=== PATIENT | female | born 1975 | race Caucasian/White ===

== ENCOUNTER 2016-11-25 05:46 | Day surgery (SDC) | payer BC, OTHER ==
[2016-11-25] VITALS (7 sets, daily range): BP systolic 129–143; BP diastolic 66–80
[~2016-11-25] VITALS: Ht 172.7 cm; Wt 114.8 kg
[~2016-11-25 05:46] MED LIST: DRIS50002 PO; LEVO25TA5 PO; NEXI40CA PO; PAXI20TA3 PO; SPIR50TA2 PO
[2016-11-25] MEDS ORDERED: LR 1,000 ML IV SCH ×2 (06:00→12:30)
[2016-11-25 06:42] LABS: CONTROL LINE UCG INT CTR LINE PRESENT
[2016-11-25] MEDS ORDERED: ROCURONIUM BROMIDE 50 MG/5 ML VIAL As Ordered ONE ×2 (07:15→08:26)
[2016-11-25] MEDS ORDERED: PROPOFOL 200 MG/20 ML VIAL As Ordered ONE ×2 (07:15→09:11)
[2016-11-25] MEDS ORDERED: LIDOCAINE 2% INJ 100 MG/5 ML SDV (FOR ANES.) As Ordered ONE ×2 (07:15→09:03)
[2016-11-25] MEDS ORDERED: fentaNYL 250 MCG/5 ML INJECTION (J3010) As Ordered ONE (07:15)
[2016-11-25] MEDS ORDERED: MIDAZOLAM INJ 2 MG/2 ML VIAL (J2250) As Ordered ONE (07:15)
[2016-11-25] MEDS ORDERED: SEVOFLURANE INHAL SOLN 250 ML BTL As Ordered ONE (07:42)
[2016-11-25] MEDS ORDERED: ePHEDrine SULFATE 25 MG/5 ML(5MG/ML) SYRINGE As Ordered ONE ×2 (08:07→08:39)
[2016-11-25] MEDS: PANTOPRAZOLE 40MG TAB (PROTONIX) PO SCH (09:00)
[2016-11-25] MEDS ORDERED: LIDOCAINE 2% INJ 100 MG/5 ML SYRINGE As Ordered ONE (09:05)
[2016-11-25] MEDS ORDERED: dexameTHASONE 4 MG/ML 1ML VIAL (J1100) As Ordered ONE (09:30)
[2016-11-25] MEDS ORDERED: KETOROLAC 60 MG/2 ML VIAL (J1885) As Ordered ONE (09:30)
[2016-11-25] MEDS ORDERED: NEOSTIGMINE 1MG/ML 5 ML SYRINGE (J2710) As Ordered ONE (09:30)
[2016-11-25] MEDS ORDERED: GLYCOPYRROLATE INJ 0.2 MG/ML 2 ML VIAL As Ordered ONE (09:30)
[2016-11-25] MEDS ORDERED: HYDROmorphone HCL 2 MG/ML 1ML VIAL (J1170) As Ordered ONE (09:31)
[2016-11-25] MEDS ORDERED: ONDANSETRON 4MG/2ML VIAL (J2405) As Ordered ONE (09:33)
[2016-11-25] MEDS ORDERED: VASOPRESSIN INJ 20 UNITS/ML VIAL As Ordered ONE (10:45)
[2016-11-25] MEDS ORDERED: METHYLENE BLUE 1% 10 ML VIAL (Q9968) As Ordered ONE (10:45)
[2016-11-25] MEDS ORDERED: MORPHINE PCA 1MG/ML 100ML CADD As Ordered ONE (12:17)
[2016-11-25] MEDS ORDERED: METOCLOPRAMIDE INJ 10MG/2ML VIAL (J2765) IV PRN (12:30)
[2016-11-25] MEDS ORDERED: MORPHINE PCA 1MG/ML 100ML CADD IV PRN ×2 (12:30→20:45)
[2016-11-25] MEDS ORDERED: EPIDURAL/PCA KEYS XX PRN ×2 (12:30→20:45)
[2016-11-25] MEDS ORDERED: ONDANSETRON 4MG/2ML VIAL (J2405) IV PRN ×2 (12:30)
[2016-11-25] MEDS ORDERED: NALBUPHINE HCL 10 MG/ML AMP (J2300) IV PRN ×2 (12:30→20:45)
[2016-11-25] MEDS ORDERED: NALOXONE INJ 0.4 MG/1 ML VIAL (J2310) IV PRN ×2 (12:30→20:45)
[2016-11-25] MEDS ORDERED: fentaNYL 100 MCG/2 ML INJECTION (J3010) IV PRN (12:30)
[2016-11-25] MEDS ORDERED: PERCOCET 5MG/325MG TAB PO PRN (12:30)
[2016-11-25] MEDS ORDERED: diphenhydrAMINE INJ 50MG/ML VIAL (J1200) IV PRN ×2 (12:30→20:45)
[2016-11-25] MEDS: LR 1,000 ML IV SCH ×2 (14:34→21:13)
[2016-11-25] MEDS: LEVOTHYROXINE 0.025 MG TAB (25 MCG) PO SCH (14:58)
[2016-11-25] MEDS: PARoxetine 20 MG TAB PO SCH (14:58)
--- NOTE | 2016-11-25 20:49 | RO ---
DATE OF PROCEDURE: 11/25/2016 PREPROCEDURE DIAGNOSES: Dysmenorrhea, menorrhagia, fibroids, incontinence with urethral hypermobility. POSTOPERATIVE DIAGNOSES: Dysmenorrhea, menorrhagia, fibroids, incontinence with urethral hypermobility. OPERATIVE PROCEDURE: Robotic assisted hysterectomy, bilateral salpingectomy, midurethral sling using Desara, and cystourethroscopy. SURGEON: Roxanne Torres MD ASSISTANT CURATOR: Cathryn Zhao ANESTHESIA: General endotracheal. BRIEF DESCRIPTION OF PROCEDURE AND FINDINGS: Uriel was brought to the operating room where sufficient general endotracheal anesthesia was induced and she was prepped, draped and positioned in the usual sterile fashion with uterine manipulator placed and the Akers with the ability to backfill placed. Attention was turned to the abdomen where a transverse semilunar incision was made at the umbilicus. Sharp and blunt dissection was continued through the subcutaneous tissues to below the rectus fascia. She was transversely incised and secured with #0 Vicryl retention sutures. The peritoneum was then entered under direct visualization and the Emiliana trocar placed and this was used to place the robotic camera and the CO2 insufflation was undertaken and after adequate CO2 insufflation the peritoneal cavity was visualized. There were normal shiny peritoneal surfaces throughout and Trendelenburg was needed to visualize well. In looking over the pelvis, there was a large mass just to the left of where the bladder usually is. This was extraperitoneal and initially the uterine manipulator had gone into that fibroid mass rather than into the main uterus. We remanipulated the tissues and reset the manipulator so that it was in the main body of the uterus and we backfilled the bladder to confirm that this was not a bladder lesion and with the manipulator in the appropriate place and two more 8 mm left-sided ports were placed and one right-sided and we went ahead and positioned the patient and docked the robot. Following which, using the robot, I carefully cauterized and transected the mesentery to the tubes and the utero-ovarian suspensory ligaments. The patient desires to keep her ovaries so we carefully dissected those free from the uterus while leaving the fallopian tubes attached to the uterus. We then continued our dissection through the broad ligament and to the round ligament which was carefully cauterized and transected bilaterally. We then anteriorly in the broad ligament dissected across the anterior aspect of the uterus and over the top of this fibroid, carefully backfilling several times that we could confirm that we well away from the bladder in this dissection. We then moved posteriorly, brought the broad ligament down and we were able to visualize the cut posteriorly relatively easily. We were also to visualize the ureters with some effort and we freed up and took control of the blood supply on the left side first because this fibroid was more off to the right and then having the blood supply controlled there, we dissected peritoneally, posteriorly and over the cup posteriorly without going through so we could have our line of dissection marked. We then carefully went back to the other side and confirmed our location of the ureter. Fortunately the ureter was inferior to this fibroid, despite that fact that it was extraperitoneal, it had come up sort of the anterior-lateral aspect of the cervix, but had come up fortunately cephalad to the ureter and displaced the ureter caudad rather than the other way around. Having confirmed that, we were able to carefully dissect the peritoneum off this fibroid and we were also able to carefully working above it first, control the blood supply above it and then carefully free the fibroid and then carefully identify the blood supply and we were able to identify the ureter separate from that and control and contain that blood supply. We did not transect that yet at this point. We then went back posteriorly and made colpotomy because we had easy access there and worked around the left side where again we had easy access. We could not see the cup well in the front because this fibroid completely initially obscured that, but having dissected the bladder down well we were then able with the under water assistant using a tenaculum on the fibroid and some counter pressure to carefully dissect the fibroid free of the bladder and elevate it. Following which we were able to first work on the left side to get started on that dissection, and then dissect through the vascular supply on the right side and then come back to the left side and carefully work around this fibroid so that we below it and still above ureters and bladder. In having completed the colpotomy there were still some points of adherence of the fibroid to the tissues and so we carefully dissected that free and having done that and having the uterus and the fibroid and the fallopian tubes free, we then the fibroid from the uterus so that we could deliver the uterus first in atraumatic fashion and then delivered the fibroid into the vagina to maintain pneumoperitoneum. Following which the cuff was closed with V-Loc suture, again, in the usual fashion and incorporating that area close to the ureterosacrals although we had dissected above them so they were still attached to the cuff anyway and with good hemostasis and approximation with the cuff achieved, we stopped the robotic portion. The instruments were removed and the CO2 of course allowed to escape and the umbilical fascial wound was closed with #0 Vicryl retention sutures and the skin of the abdominal wounds were closed by Cathryn Zhao while I went down below to work on the patient's midurethral sling with the fibroid of course out of the vagina and the uterus which weight 241 grams, so under 250. With weighed and off the table, etc, attention was turned to the midurethral sling Desara with vasopressin injected anteriorly, a small incision made. The Strully scissors used to dissect out laterally, following which a retropubic bottom to top midurethral sling was placed with Desara and cystoscopy was performed after placing each arm, confirming no perforation of the bladder and free movement of the visible trocar without any kinking or puckering of the bladder wall. We also saw no evidence of injury during the hysterectomy and nor was there any evidence or problem with the ureters. Good jets of urine were visible bilaterally and with both sides of the Desara placed, was then snugged up around a #8 Holly and the red rubber shod stylet in the urethra as is the typical fitting that I do and then the sheathing was removed and the spacers removed, and then the mesh trimmed superiorly and the vaginal wound was closed with #2-0 Vicryl and the skin in the suprapubic region reapproximated with interrupted stitch of #3-0 Vicryl with dry sterile dressings then applied. There was a little bit of oozing close to the opening on the patient's right side so vaginal packing was placed and of course dry sterile dressings were placed on the abdominal wounds as well and the procedure was then ended. Estimated blood loss for the procedure about 100 mL. Fluid replacement was crystalloid. Complications: None. CONDITION AND DISPOSITION: Despite the challenging nature of the anatomy, Uriel tolerated the procedure quite well and was recovering in the recovery room in good condition.
[2016-11-26] VITALS: BP 132/67
[2016-11-26] MEDS: IBUPROFEN 600 MG TAB PO PRN ×2 (00:15→05:52)
[2016-11-26 05:00] VITALS: BP 136/63
[2016-11-26] MEDS: LR 1,000 ML IV SCH (05:38)
[2016-11-26] MEDS: NORCO, ANEXSIA 5/325MG TABLET (HYDROcodone/ACETAMINOPHEN) PO PRN ×2 (05:52→10:23)
[2016-11-26] MEDS: LEVOTHYROXINE 0.025 MG TAB (25 MCG) PO SCH (05:52)
[2016-11-26 07:25] LABS: MEAN CORPUSCULAR HEMOGLOBIN 29.6 pg (27.0-33.0); MEAN CORPUSCULAR HGB CONC 32.7 g/dl (32.0-36.5); MEAN CORPUSCULAR VOLUME 90.7 fl (80.0-96.0); RED CELL DISTRIBUTION WIDTH 13.1 % (11.5-14.5)
[2016-11-26 08:00] VITALS: BP 116/60
[2016-11-26] MEDS: PARoxetine 20 MG TAB PO SCH (08:55)
[2016-11-26] MEDS: PANTOPRAZOLE 40MG TAB (PROTONIX) PO SCH (08:55)
[2016-11-26] MEDS ORDERED: NORC5TAB PO (10:04)
[2016-11-26] MEDS ORDERED: IBUP600T26 PO (10:04)
== END 2016-11-26 10:30 | disposition home or self-care (01) ==
LOC: M SDC 05:46 → M PED 12:13 → M SDC 11-26 10:30
PROVIDERS: ATTEND Obstetrics & Gynecology
DX: N94.6 Dysmenorrhea, unspecified (principal); N92.0 Excessive and frequent menstruation with regular cycle; D25.9 Leiomyoma of uterus, unspecified; R32 Unspecified urinary incontinence; N36.41 Hypermobility of urethra; E03.9 Hypothyroidism, unspecified; E78.00 Pure hypercholesterolemia, unspecified; G43.909 Migraine, unspecified, not intractable, without status migrainosus; G47.30 Sleep apnea, unspecified; E66.9 Obesity, unspecified; K27.9 Peptic ulcer, site unspecified, unspecified as acute or chronic, without hemorrhage or perforation; F41.9 Anxiety disorder, unspecified; K21.9 Gastro-esophageal reflux disease without esophagitis; R06.83 Snoring; Z79.899 Other long term (current) drug therapy
CPT/HCPCS: 36415; 57288; 58571; 84703; 85027; 88309; C1771; J0690; J1100; J1170; J1885; J2250; J2405; J2710; J3010; Q9968

== ENCOUNTER → 2017-07-20 | Outpatient (REF) | payer OTHER ==
[~2017-07-20] MED LIST changes: +IBUP-1022 PO; +NORC1TAB4 PO; +PAXI20TA29 PO; -PAXI20TA3 PO
== END ==
LOC: M LABDRWCV 16:08
PROVIDERS: ATTEND Nurse Practitioner Psychiatric/Mental Health
DX: Z13.21 Encounter for screening for nutritional disorder (principal); Z98.84 Bariatric surgery status

== ENCOUNTER → 2017-07-20 | Outpatient (REF) | payer OTHER ==
[2017-07-20 19:51] LABS: ALBUMIN 3.8 GM/DL (3.2-5.2); ALBUMIN/GLOBULIN RATIO 1.19 (1.00-1.93); ALKALINE PHOSPHATASE 113 U/L (45-117); ALT/SGPT 53 U/L (12-78); ANION GAP 5 MEQ/L (8-16); AST/SGOT 35 U/L (15-37); BILIRUBIN,TOTAL 0.4 MG/DL (0.2-1.0); BLOOD UREA NITROGEN 13 MG/DL (7-18); CALCIUM LEVEL 8.9 MG/DL (8.5-10.1); CARBON DIOXIDE LEVEL 28 MEQ/L (21-32); CHLORIDE LEVEL 108 MEQ/L (98-107); CHOLESTEROL LEVEL 155 MG/DL (<200); CREATININE FOR GFR 0.62 MG/DL (0.55-1.02); GLOMERULAR FILTRATION RATE > 60.0 (>58); GLUCOSE, FASTING 77 MG/DL (70-105); POTASSIUM SERUM 4.2 MEQ/L (3.5-5.1); SODIUM LEVEL 141 MEQ/L (136-145); TRIGLYCERIDES LEVEL 95 MG/DL (<150)
[2017-07-20 20:00] LABS: BASO % 0.2 % (0.0-1.0); EOS # 0.1 10^3/uL (0.0-0.50); EOS % 1.8 % (0.0-3.0); IMMATURE GRANULOCYTE % 0.2 % (0-0); LYMPH # 1.9 10^3/uL (1.5-4.5); LYMPH % 33.7 % (24.0-44.0); MEAN CORPUSCULAR HEMOGLOBIN 28.2 pg (27.0-33.0); MEAN CORPUSCULAR HGB CONC 31.5 g/dl (32.0-36.5); MEAN CORPUSCULAR VOLUME 89.5 fl (80.0-96.0); MONO # 0.3 10^3/uL (0.0-0.8); NEUTROPHILS # 3.3 10^3/uL (1.8-7.7); NEUTROPHILS % 58.1 % (36.0-66.0); PLATELET COUNT, AUTOMATED 258 10^3/uL (150-450); RED CELL DISTRIBUTION WIDTH 14.3 % (11.5-14.5); WHITE BLOOD COUNT 5.7 10^3/uL (4.0-10.0)
[2017-07-20 20:08] LABS: ADD MORPHOLOGY? NO
== END ==
LOC: M SFHCCAPE 09:43
PROVIDERS: ATTEND Physician Assistant
DX: E03.9 Hypothyroidism, unspecified (principal)

== ENCOUNTER → 2018-03-24 | Outpatient (CLI) | payer BC, OTHER | LOC: M CLY 08:39 | DX: M54.5 Low back pain (principal) ==

== ENCOUNTER → 2018-04-20 | Outpatient (REF) | payer OTHER ==
[2018-04-21 08:56] LABS: RUBELLA IgG QUALITATIVE IMMUNE (IMMUNE)
[2018-04-22 08:08] LABS: RUBEOLA IgG ANTIBODY 43.3 AU/mL (Immune >29.9)
== END ==
LOC: M SFHCCAPE 09:27
DX: Z11.59 Encounter for screening for other viral diseases (principal)

== ENCOUNTER → 2018-08-02 | Outpatient (REF) | payer OTHER ==
[2018-08-02 16:28] LABS: BASO % 0.4 % (0.0-1.0); EOS # 0.2 10^3/uL (0.0-0.50); EOS % 2.8 % (0.0-3.0); HEMOGLOBIN 12.1 g/dl (12.0-15.5); IMMATURE GRANULOCYTE % 0.2 % (0-3.0); LYMPH # 1.7 10^3/uL (1.5-4.5); LYMPH % 32.8 % (24.0-44.0); MEAN CORPUSCULAR HGB CONC 32.7 g/dl (32.0-36.5); MEAN CORPUSCULAR VOLUME 91.6 fl (80.0-96.0); MONO # 0.4 10^3/uL (0.0-0.8); MONO % 7.7 % (0.0-5.0); NEUTROPHILS % 56.1 % (36.0-66.0); PLATELET COUNT, AUTOMATED 233 10^3/uL (150-450); RED BLOOD COUNT 4.04 10^6/uL (4.00-5.40); RED CELL DISTRIBUTION WIDTH 12.3 % (11.5-14.5); WHITE BLOOD COUNT 5.3 10^3/uL (4.0-10.0)
[2018-08-02 16:46] LABS: ALBUMIN 3.7 GM/DL (3.2-5.2); ALBUMIN/GLOBULIN RATIO 1.28 (1.00-1.93); ALKALINE PHOSPHATASE 123 U/L (45-117); ALT/SGPT 23 U/L (12-78); ANION GAP 7 MEQ/L (8-16); AST/SGOT 16 U/L (7-37); BILIRUBIN,TOTAL 0.3 MG/DL (0.2-1.0); BLOOD UREA NITROGEN 12 MG/DL (7-18); CALCIUM LEVEL 8.4 MG/DL (8.5-10.1); CARBON DIOXIDE LEVEL 28 MEQ/L (21-32); CHLORIDE LEVEL 109 MEQ/L (98-107); CHOLESTEROL LEVEL 168 MG/DL (<200); CHOLESTEROL RISK RATIO 3.111 (<5); CREATININE FOR GFR 0.69 MG/DL (0.55-1.30); FREE T4 0.91 NG/DL (0.76-1.46); GLOMERULAR FILTRATION RATE > 60.0 (>58); GLUCOSE, FASTING 84 MG/DL (70-100); HDL CHOLESTEROL 54 MG/DL (>40); LDL CHOLESTEROL 102 MG/DL (<100); NON-HDL-C 114 MG/DL; POTASSIUM SERUM 4.2 MEQ/L (3.5-5.1); SODIUM LEVEL 144 MEQ/L (136-145); TOTAL PROTEIN 6.6 GM/DL (6.4-8.2); TRIGLYCERIDES LEVEL 62 MG/DL (<150)
[2018-08-02 16:51] LABS: TOTAL 25(OH) VITAMIN D 30.1 NG/ML (30.0-100.0)
== END ==
LOC: M SFHCCAPE 06:58
DX: E78.00 Pure hypercholesterolemia, unspecified (principal); E03.9 Hypothyroidism, unspecified; E55.9 Vitamin D deficiency, unspecified
CPT/HCPCS: 84443

== ENCOUNTER → 2018-10-09 | Outpatient (REF) | payer OTHER ==
[~2018-10-09] MED LIST changes: -DRIS50002 PO; +DRIS50003 PO; -SPIR50TA2 PO; +SPIR50TA4 PO
[2018-10-09 17:01] LABS: ALBUMIN 3.7 GM/DL (3.2-5.2); ALT/SGPT 27 U/L (12-78); BILIRUBIN,TOTAL 0.4 MG/DL (0.2-1.0); BLOOD UREA NITROGEN 15 MG/DL (7-18); CALCIUM LEVEL 8.6 MG/DL (8.5-10.1); CARBON DIOXIDE LEVEL 29 MEQ/L (21-32); CHLORIDE LEVEL 105 MEQ/L (98-107); CHOLESTEROL LEVEL 188 MG/DL (<200); CHOLESTEROL RISK RATIO 3.032 (<5); CREATININE FOR GFR 0.63 MG/DL (0.55-1.30); GLOMERULAR FILTRATION RATE > 60.0 (>58); GLUCOSE, FASTING 74 MG/DL (70-100); HDL CHOLESTEROL 62 MG/DL (>40); LDL CHOLESTEROL 111 MG/DL (<100); NON-HDL-C 126 MG/DL; SODIUM LEVEL 141 MEQ/L (136-145); TOTAL PROTEIN 6.7 GM/DL (6.4-8.2); TRIGLYCERIDES LEVEL 73 MG/DL (<150)
[2018-10-09 17:03] LABS: TOTAL 25(OH) VITAMIN D 25.7 NG/ML (30.0-100.0)
== END ==
LOC: M SFHCCAPE 07:00
PROVIDERS: ATTEND Physician Assistant
DX: E78.00 Pure hypercholesterolemia, unspecified (principal); E03.9 Hypothyroidism, unspecified; E55.9 Vitamin D deficiency, unspecified

== ENCOUNTER → 2019-01-11 | Outpatient (REF) | payer OTHER ==
[2019-01-11 19:06] LABS: ALBUMIN 3.7 GM/DL (3.2-5.2); ALT/SGPT 23 U/L (12-78); BILIRUBIN,TOTAL 0.5 MG/DL (0.2-1.0); BLOOD UREA NITROGEN 16 MG/DL (7-18); CALCIUM LEVEL 8.8 MG/DL (8.5-10.1); CARBON DIOXIDE LEVEL 26 MEQ/L (21-32); CHLORIDE LEVEL 109 MEQ/L (98-107); CHOLESTEROL LEVEL 188 MG/DL (<200); CHOLESTEROL RISK RATIO 3.133 (<5); CREATININE FOR GFR 0.71 MG/DL (0.55-1.30); FREE T4 1.01 NG/DL (0.76-1.46); GLOMERULAR FILTRATION RATE > 60.0 (>58); GLUCOSE, FASTING 76 MG/DL (70-100); HDL CHOLESTEROL 60 MG/DL (>40); LDL CHOLESTEROL 110 MG/DL (<100); NON-HDL-C 128 MG/DL; POTASSIUM SERUM 4.2 MEQ/L (3.5-5.1); SODIUM LEVEL 142 MEQ/L (136-145); TOTAL PROTEIN 6.8 GM/DL (6.4-8.2); TRIGLYCERIDES LEVEL 89 MG/DL (<150)
== END ==
LOC: M SFHCCAPE 07:27
PROVIDERS: ATTEND Physician Assistant
DX: E03.9 Hypothyroidism, unspecified (principal)

== ENCOUNTER → 2019-04-20 | Outpatient (CLI) | payer BC, OTHER ==
[~2019-04-20] MED LIST changes: -NORC1TAB4 PO; +NORC1TAB7 PO
--- NOTE | 2019-04-20 10:54 | REP ---
Hepatobiliary scan and gallbladder ejection fraction: History: Right upper quadrant pain Technique: 6.5 mCi of technetium-99m mebrofenin was injected and sequential anterior images are acquired. 65 minutes after the mebrofenin injection, the patient consumed 8 ounces Ensure and an additional 60 minutes of imaging was acquired. Regions of interest are plotted around the gallbladder. Findings: The initial hepatocellular parenchymal uptake phase is normal and homogeneous. Intra- and extra-hepatic bile ducts and duodenum are labeled by the 10 minute image. The gallbladder is first labeled on the 10 minute image. There is normal washout from the liver parenchyma into the gallbladder and small intestine on subsequent images. The gallbladder ejection fraction is 35 %. Values greater than 35 % are considered normal with this technique. Impression: Normal hepatobiliary scan and borderline gallbladder ejection fraction. Electronically Signed by Job Sequeira MD 04/20/2019 10:46 A
== END ==
LOC: M RAD 07:30
PROVIDERS: ATTEND Nurse Practitioner Family
DX: R10.11 Right upper quadrant pain (principal)
CPT/HCPCS: 78227; A9537; J2805

== ENCOUNTER → 2020-09-16 | Outpatient (REF) | payer OTHER ==
[2020-09-16 12:36] LABS: BASO % 0.4 % (0.0-1.0); EOS # 0.1 10^3/uL (0.0-0.5); EOS % 2.9 % (0.0-3.0); HEMATOCRIT 39.2 % (36.0-47.0); HEMOGLOBIN 12.2 g/dl (12.0-15.5); LYMPH # 1.4 10^3/uL (1.5-5.0); LYMPH % 27.5 % (24.0-44.0); MEAN CORPUSCULAR HEMOGLOBIN 28.4 pg (27.0-33.0); MEAN CORPUSCULAR HGB CONC 31.1 g/dl (32.0-36.5); MEAN CORPUSCULAR VOLUME 91.4 fl (80.0-96.0); MONO # 0.4 10^3/uL (0.0-0.8); MONO % 7.7 % (0.0-5.0); NEUTROPHILS % 61.3 % (36.0-66.0); PLATELET COUNT, AUTOMATED 314 10^3/uL (150-450); RED BLOOD COUNT 4.29 10^6/uL (4.00-5.40); WHITE BLOOD COUNT 4.9 10^3/uL (4.0-10.0)
[2020-09-16 13:09] LABS: ALT/SGPT 38 U/L (12-78); BILIRUBIN,TOTAL 0.4 MG/DL (0.2-1.0); BLOOD UREA NITROGEN 13 MG/DL (7-18); CALCIUM LEVEL 9.2 MG/DL (8.5-10.1); CARBON DIOXIDE LEVEL 28 MEQ/L (21-32); CHLORIDE LEVEL 106 MEQ/L (98-107); CHOLESTEROL LEVEL 268 MG/DL (<200); CHOLESTEROL RISK RATIO 3.152 (<5); FERRITIN 10 NG/ML (8-252); FOLATE 21.9 NG/ML; FREE T4 1.03 NG/DL (0.76-1.46); GLOMERULAR FILTRATION RATE > 60.0 (>58); GLUCOSE, FASTING 92 MG/DL (70-100); HDL CHOLESTEROL 85 MG/DL (>40); IRON (FE) 75 UG/DL (50-170); LDL CHOLESTEROL 164 MG/DL (<100); NON-HDL-C 183 MG/DL; POTASSIUM SERUM 4.3 MEQ/L (3.5-5.1); SODIUM LEVEL 140 MEQ/L (136-145); TOTAL 25(OH) VITAMIN D 25.9 NG/ML (30.0-100.0); TOTAL PROTEIN 7.2 GM/DL (6.4-8.2); TRIGLYCERIDES LEVEL 95 MG/DL (<150); VITAMIN B12 LEVEL 578 PG/ML
== END ==
LOC: M SFHCCLAY 08:35
PROVIDERS: ATTEND Physician Assistant
DX: E78.00 Pure hypercholesterolemia, unspecified (principal); R53.83 Other fatigue; E55.9 Vitamin D deficiency, unspecified; E03.9 Hypothyroidism, unspecified; Z98.84 Bariatric surgery status

== ENCOUNTER → 2020-09-22 | Outpatient (REF) | payer OTHER ==
[2020-09-22 11:32] LABS: APPEARANCE, URINE HAZY (CLEAR); BACTERIA, URINE AUTO 1+ (NEGATIVE); BILIRUBIN, URINE AUTO NEGATIVE (NEGATIVE); BLOOD, URINE BLOOD 1+ (NEGATIVE); COLOR, URINE YELLOW (YELLOW); GLUCOSE, URINE (UA) AUTO NEGATIVE (NEGATIVE); KETONE, URINE AUTO NEGATIVE (NEGATIVE); LEUKOCYTE ESTERASE, URINE AUTO TRACE (NEGATIVE); MUCUS, URINE SMALL (NEGATIVE); NITRITE, URINE AUTO NEGATIVE (NEGATIVE); PROTEIN, URINE AUTO NEGATIVE (NEGATIVE); RBC, URINE AUTO 3 /HPF (0-3); SQUAMOUS EPITHELIAL CELL UR AU 3 /HPF (0-6); UROBILINOGEN, URINE AUTO 0.2 mg/dL (0.0-2.0); WBC, URINE AUTO 5 /HPF (0-3)
[2020-09-22 12:30] LABS: C REACTIVE PROTEIN QUANTITATIV < 0.30 MG/DL (0.00-0.30); FOLLICLE STIMULATING HORMONE 9.8 mIU/mL; LUTEINIZING HORMONE 9.8 mIU/mL; RHEUMATOID FACTOR QUANT < 10.0 IU/ML (<15.0)
[2020-09-23 23:06] LABS: ANA (HEP2) Negative (.); CYCLIC CITRULLINATED PEPTIDE 18 units (0-19); Lyme Disease IgG/IgM Antibodie <0.91 ISR (0.00-0.90); Lyme Disease IgM Ab Quantitati <0.80 index (0.00-0.79)
== END ==
LOC: M SFHCCLAY 08:04
PROVIDERS: ATTEND Physician Assistant
DX: R53.83 Other fatigue (principal); M25.50 Pain in unspecified joint

== ENCOUNTER → 2021-03-09 | Outpatient (REF) | payer OTHER ==
[2021-03-09 16:35] LABS: BASO % 0.3 % (0.0-1.0); EOS # 0.1 10^3/uL (0.0-0.5); EOS % 1.7 % (0.0-3.0); HEMATOCRIT 38.8 % (36.0-47.0); HEMOGLOBIN 12.3 g/dl (12.0-15.5); LYMPH # 2.2 10^3/uL (1.5-5.0); LYMPH % 32.5 % (24.0-44.0); MEAN CORPUSCULAR HEMOGLOBIN 28.9 pg (27.0-33.0); MEAN CORPUSCULAR HGB CONC 31.7 g/dl (32.0-36.5); MEAN CORPUSCULAR VOLUME 91.3 fl (80.0-96.0); MONO # 0.5 10^3/uL (0.0-0.8); MONO % 7.1 % (2.0-8.0); NEUTROPHILS # 3.8 10^3/uL (1.5-8.5); NEUTROPHILS % 58.1 % (36.0-66.0); PLATELET COUNT, AUTOMATED 297 10^3/uL (150-450); RED BLOOD COUNT 4.25 10^6/uL (4.00-5.40); WHITE BLOOD COUNT 6.6 10^3/uL (4.0-10.0)
[2021-03-09 17:06] LABS: ALT/SGPT 27 U/L (12-78); BILIRUBIN,TOTAL 0.3 MG/DL (0.2-1.0); BLOOD UREA NITROGEN 13 MG/DL (7-18); CALCIUM LEVEL 8.4 MG/DL (8.5-10.1); CARBON DIOXIDE LEVEL 26 MEQ/L (21-32); CHLORIDE LEVEL 107 MEQ/L (98-107); CHOLESTEROL LEVEL 222 MG/DL (<200); CHOLESTEROL RISK RATIO 3.264 (<5); CREATININE FOR GFR 0.65 MG/DL (0.55-1.30); FREE T4 0.95 NG/DL (0.76-1.46); GLOMERULAR FILTRATION RATE > 60.0 (>58); GLUCOSE, FASTING 72 MG/DL (70-100); HDL CHOLESTEROL 68 MG/DL (>40); LDL CHOLESTEROL 133 MG/DL (<100); NON-HDL-C 154 MG/DL; POTASSIUM SERUM 4.3 MEQ/L (3.5-5.1); SODIUM LEVEL 140 MEQ/L (136-145); THYROID STIMULATING HORMONE 0.918 uIU/ML (0.358-3.740); TOTAL 25(OH) VITAMIN D 27.3 NG/ML (30.0-100.0); TRIGLYCERIDES LEVEL 105 MG/DL (<150)
== END ==
LOC: M SFHCCAPE 07:00
PROVIDERS: ATTEND Physician Assistant
DX: E78.00 Pure hypercholesterolemia, unspecified (principal); E03.9 Hypothyroidism, unspecified; E55.9 Vitamin D deficiency, unspecified

== ENCOUNTER → 2021-12-28 | Outpatient (REF) | payer OTHER ==
[2021-12-28 16:20] LABS: BASO % 0.4 % (0.0-1.0); EOS # 0.1 10^3/uL (0.0-0.5); EOS % 1.8 % (0.0-3.0); HEMATOCRIT 36.9 % (36.0-47.0); HEMOGLOBIN 11.9 g/dl (12.0-15.5); LYMPH # 1.4 10^3/uL (1.5-5.0); LYMPH % 28.1 % (24.0-44.0); MEAN CORPUSCULAR HEMOGLOBIN 29.6 pg (27.0-33.0); MEAN CORPUSCULAR HGB CONC 32.2 g/dl (32.0-36.5); MEAN CORPUSCULAR VOLUME 91.8 fl (80.0-96.0); MONO # 0.4 10^3/uL (0.0-0.8); NEUTROPHILS # 3.2 10^3/uL (1.5-8.5); NEUTROPHILS % 61.5 % (36.0-66.0); PLATELET COUNT, AUTOMATED 257 10^3/uL (150-450); RED BLOOD COUNT 4.02 10^6/uL (4.00-5.40); WHITE BLOOD COUNT 5.1 10^3/uL (4.0-10.0)
[2021-12-28 16:59] LABS: ALBUMIN 3.5 GM/DL (3.2-5.2); ALT/SGPT 27 U/L (12-78); BILIRUBIN,TOTAL 0.6 MG/DL (0.2-1.0); BLOOD UREA NITROGEN 13 MG/DL (7-18); CALCIUM LEVEL 8.6 MG/DL (8.5-10.1); CARBON DIOXIDE LEVEL 24 MEQ/L (21-32); CHLORIDE LEVEL 108 MEQ/L (98-107); CHOLESTEROL LEVEL 197 MG/DL (<200); CHOLESTEROL RISK RATIO 2.897 (<5); CREATININE FOR GFR 0.66 MG/DL (0.55-1.30); GLOMERULAR FILTRATION RATE > 60.0 (>58); GLUCOSE, FASTING 86 MG/DL (70-100); HDL CHOLESTEROL 68 MG/DL (>40); LDL CHOLESTEROL 112 MG/DL (<100); NON-HDL-C 129 MG/DL; POTASSIUM SERUM 4.1 MEQ/L (3.5-5.1); SODIUM LEVEL 139 MEQ/L (136-145); TOTAL PROTEIN 6.5 GM/DL (6.4-8.2); TRIGLYCERIDES LEVEL 83 MG/DL (<150)
[2021-12-28 17:24] LABS: FOLATE > 24.0 NG/ML; VITAMIN B12 LEVEL 475 PG/ML
[2021-12-29 12:40] LABS: TOTAL 25(OH) VITAMIN D 17.2 NG/ML (30.0-100.0)
== END ==
LOC: M SFHCCAPE 07:12
PROVIDERS: ATTEND Physician Assistant
DX: E78.00 Pure hypercholesterolemia, unspecified (principal); E55.9 Vitamin D deficiency, unspecified; Z98.84 Bariatric surgery status

== ENCOUNTER → 2022-10-14 | Outpatient (REF) | payer OTHER ==
[~2022-10-14] MED LIST changes: -PAXI20TA29 PO; +PAXI20TA30 PO
[2022-10-14 15:03] LABS: PERCENT SATURATION 21.7 % (13.2-45.0)
[2022-10-14 15:06] LABS: FERRITIN 33.2 NG/ML (7.3-270.7)
== END ==
LOC: M LAB REF 12:22
PROVIDERS: ATTEND Internal Medicine
DX: D50.9 Iron deficiency anemia, unspecified (principal)

== ENCOUNTER → 2023-03-31 | Outpatient (CLI) | payer BC, OTHER | LOC: M WHC 15:06 | PROVIDERS: ATTEND Advanced Practice Midwife | DX: Z12.31 Encounter for screening mammogram for malignant neoplasm of breast (principal); R92.8 Other abnormal and inconclusive findings on diagnostic imaging of breast ==

== ENCOUNTER → 2023-04-14 | Outpatient (CLI) | payer BC, OTHER | LOC: M WHC 10:17 | PROVIDERS: ATTEND Advanced Practice Midwife | DX: Z12.31 Encounter for screening mammogram for malignant neoplasm of breast (principal); N63.20 Unspecified lump in the left breast, unspecified quadrant | CPT/HCPCS: 76642; 77065; G0279 ==

== ENCOUNTER → 2023-04-28 | Outpatient (CLI) | payer BC, OTHER ==
[~2023-04-28] MED LIST changes: +**SFHN** LIDOCAINE 1% MDV 20ML VIAL ONE; +**SFHN** SODIUM BICARBONATE 8.4% 10MEQ 10ML VIAL ONE; +FERR325T81 PO; +SEMA1PEN2 SQ; +ZOLO25TA PO
[2023-04-28 12:17] VITALS: TEMP 98.4
[2023-04-28 13:53] VITALS: BP 116/64; O2SAT 98
== END ==
LOC: M WHCPRO 11:49
PROVIDERS: ATTEND Advanced Practice Midwife
DX: C50.412 Malignant neoplasm of upper-outer quadrant of left female breast (principal); C79.81 Secondary malignant neoplasm of breast; R92.8 Other abnormal and inconclusive findings on diagnostic imaging of breast

== ENCOUNTER → 2023-12-20 | Outpatient (CLI) | payer BC ==
[~2023-12-20] MED LIST changes: -**SFHN** LIDOCAINE 1% MDV 20ML VIAL ONE; -**SFHN** SODIUM BICARBONATE 8.4% 10MEQ 10ML VIAL ONE; +CYCL-707 PO; +GABA-282 PO; +LETR2.5T2 PO; +LEVO75TA4 PO; +PANT40TA29 PO; +ZOLO100T PO
== END ==
LOC: M ONCR 14:13
PROVIDERS: ATTEND General Practice
DX: C50.112 Malignant neoplasm of central portion of left female breast (principal); Z71.2 Person consulting for explanation of examination or test findings; Z79.85 Long-term (current) use of injectable non-insulin antidiabetic drugs; Z79.890 Hormone replacement therapy; Z79.899 Other long term (current) drug therapy; Z90.12 Acquired absence of left breast and nipple; Z90.710 Acquired absence of both cervix and uterus; Z92.21 Personal history of antineoplastic chemotherapy

== ENCOUNTER → 2024-02-02 | Outpatient (CLI) | payer BC | LOC: M ONCR 09:30 | PROVIDERS: ATTEND General Practice | DX: C50.112 Malignant neoplasm of central portion of left female breast (principal); C77.3 Secondary and unspecified malignant neoplasm of axilla and upper limb lymph nodes; Z71.2 Person consulting for explanation of examination or test findings; Z79.811 Long term (current) use of aromatase inhibitors; Z79.899 Other long term (current) drug therapy; Z90.12 Acquired absence of left breast and nipple; Z92.21 Personal history of antineoplastic chemotherapy ==

== ENCOUNTER → 2024-02-21 | Outpatient (RCR) | payer BC | LOC: M ONCR 02-08 09:46 | PROVIDERS: ATTEND General Practice | DX: Z51.0 Encounter for antineoplastic radiation therapy (principal); C50.112 Malignant neoplasm of central portion of left female breast ==

== ENCOUNTER → 2024-03-23 | Outpatient (RCR) | payer BC ==
[~2024-03-23] MED LIST changes: +D31000CA4 PO; +FERR30CA PO; +SPIR100T3 PO
== END ==
LOC: M ONCR 02-22 11:43
PROVIDERS: ATTEND General Practice
DX: Z51.0 Encounter for antineoplastic radiation therapy (principal); C50.112 Malignant neoplasm of central portion of left female breast

== ENCOUNTER 2024-03-26 07:23 | Outpatient (RCR) | payer BC ==
[~2024-03-26 07:23] MED LIST changes: -D31000CA4 PO; -FERR30CA PO; -SPIR100T3 PO
[2024-03-27] MEDS ORDERED: FERR30CA PO (13:55)
[2024-03-27] MEDS ORDERED: D31000CA4 PO (13:55)
[2024-03-27] MEDS ORDERED: SPIR100T3 PO (13:55)
== END 2024-04-22 ==
LOC: M ONCR 07:23
PROVIDERS: ATTEND General Practice
DX: Z51.0 Encounter for antineoplastic radiation therapy (principal); C50.112 Malignant neoplasm of central portion of left female breast

== ENCOUNTER 2024-04-02 09:50 | Day surgery (SDC) | payer BC ==
[~2024-04-02] VITALS: Ht 172.7 cm; Wt 90.7 kg
[~2024-04-02 09:50] MED LIST changes: +D31000CA4 PO; +FERR30CA PO; +NS 1,000 ML IV ONE; +SPIR100T3 PO
[2024-04-02] MEDS ORDERED: LIDOCAINE 2% 100MG/5ML SDV (FOR ANES.) As Ordered ONE (10:49)
[2024-04-02] MEDS ORDERED: propofoL 200 MG/20 ML VIAL As Ordered ONE (10:49)
[2024-04-02] MEDS ORDERED: ePHEDrine SULFATE 25 MG/5 ML(5MG/ML) SYRINGE As Ordered ONE (11:21)
[2024-04-02 11:36] VITALS: TEMP 97.3
[2024-04-02 11:52] VITALS: BP 105/57; O2SAT 99
== END 2024-04-02 11:57 | disposition home or self-care (01) ==
LOC: M OPP 09:50
PROVIDERS: ATTEND Internal Medicine Gastroenterology
DX: Z12.11 Encounter for screening for malignant neoplasm of colon (principal); K64.8 Other hemorrhoids; K57.30 Diverticulosis of large intestine without perforation or abscess without bleeding; E03.9 Hypothyroidism, unspecified; Z79.890 Hormone replacement therapy; Z79.899 Other long term (current) drug therapy

== ENCOUNTER → 2024-05-11 | Day surgery (SDC) | payer BC ==
[~2024-05-11] VITALS: Ht 172.7 cm; Wt 90.7 kg
[~2024-05-11] MED LIST changes: +ACETAMINOPHEN 1000MG 100ML IV BAG As Ordered ONE; +DIBU28OI2 TOP; +LIDOCAINE 2% 100MG/5ML SDV (FOR ANES.) As Ordered ONE; +MIDAZOLAM INJ 2MG/2ML VIAL As Ordered ONE; -NS 1,000 ML IV ONE; +ONDANSETRON 4MG 2ML VIAL As Ordered ONE; +ONDANSETRON 4MG 2ML VIAL IV PRN; +ROCURONIUM BROMIDE 50MG/5ML VIAL As Ordered ONE; +SUGAMMADEX SODIUM 500 MG/5 ML VIAL (BRIDION) As Ordered ONE; +THERTAB52 PO; +VERZ150T PO; +fentaNYL 100 MCG/2 ML INJECTION As Ordered ONE; +fentaNYL 100 MCG/2 ML INJECTION IV PRN; +oxyCODONE 5MG TAB PO PRN; +propofoL 200 MG/20 ML VIAL As Ordered ONE
[2024-05-11] MEDS: SILVER NITRATE APPLICATOR (1 = QTY 10) As Ordered ONE (10:23)
[2024-05-11] MEDS: LIDOCAINE W/EPINEPHRINE 1% 20ML VIAL As Ordered ONE (10:23)
[2024-05-11 13:30] LABS: HEMATOCRIT 36.2 % (36.0-47.0); HEMOGLOBIN 11.7 g/dl (12.0-15.5)
[2024-05-11] MEDS: ceFAZolin SOD 2 GM in IV 1 EA IV ONE (13:40)
[2024-05-11 15:21] VITALS: BP 122/66; TEMP 97.9; O2SAT 98
== END | disposition home or self-care (01) ==
LOC: M SDC 15:28
PROVIDERS: ATTEND Obstetrics & Gynecology
DX: T83.712A Erosion of implanted urethral mesh to surrounding organ or tissue, initial encounter (principal); R32 Unspecified urinary incontinence; Y73.2 Prosthetic and other implants, materials and accessory gastroenterology and urology devices associated with adverse incidents; E03.9 Hypothyroidism, unspecified; E78.00 Pure hypercholesterolemia, unspecified; Z85.3 Personal history of malignant neoplasm of breast; Z79.890 Hormone replacement therapy; Z79.899 Other long term (current) drug therapy; Z92.3 Personal history of irradiation; Z90.710 Acquired absence of both cervix and uterus; Z90.89 Acquired absence of other organs; Z98.84 Bariatric surgery status
CPT/HCPCS: 36415; 57287; 85014; 85018; 86850; 86900; 86901; J0131; J0690; J1100; J2250; J2405; J3010

== ENCOUNTER → 2024-11-07 | Outpatient (REF) | payer OTHER ==
[~2024-11-07] MED LIST changes: -ACETAMINOPHEN 1000MG 100ML IV BAG As Ordered ONE; +GABA-1172 PO; -GABA-282 PO; -LIDOCAINE 2% 100MG/5ML SDV (FOR ANES.) As Ordered ONE; -MIDAZOLAM INJ 2MG/2ML VIAL As Ordered ONE; -ONDANSETRON 4MG 2ML VIAL As Ordered ONE; -ONDANSETRON 4MG 2ML VIAL IV PRN; -ROCURONIUM BROMIDE 50MG/5ML VIAL As Ordered ONE; -SUGAMMADEX SODIUM 500 MG/5 ML VIAL (BRIDION) As Ordered ONE; -fentaNYL 100 MCG/2 ML INJECTION As Ordered ONE; -fentaNYL 100 MCG/2 ML INJECTION IV PRN; -oxyCODONE 5MG TAB PO PRN; -propofoL 200 MG/20 ML VIAL As Ordered ONE
[2024-11-07 17:10] LABS: PERCENT SATURATION 17.8 % (13.2-45.0)
[2024-11-07 17:11] LABS: FERRITIN 110.1 NG/ML (7.3-270.7)
== END ==
LOC: M LAB REF 16:07
PROVIDERS: ATTEND Internal Medicine
DX: D50.9 Iron deficiency anemia, unspecified (principal)